=== PATIENT | female | born 1990 | race African-American/Black ===

== ENCOUNTER → 2017-06-25 21:35 | Observation (INO) ==
--- NOTE | 2017-06-25 20:57 | OB/GYN Progress Note ---
Date of Encounter: 06/25/17 Time of Encounter: 20:53 - Assessment and Plan (1) 38 weeks gestation of Current Visit: Yes Status: Acute admitted for labor observation (2) Group B streptococcal infection during Current Visit: Yes Status: Acute GBS prophylaxis in labor Subjective - Subjective Principal diagnosis: Term IUP with contractions Interval history: Patient is a 27 y/o at 38w6d presents to labor and delivery via squad with complaints of contractions that started earlier today and have got more painful. Patient denies LOF or VB. Patient reports +FM. Patient reports she is on Subutex but denies any other complications. We did obtain records from [facility] where patient receives care. Blood type B+, Rubella: Immune, Hep B: nonreactive, GBS: Positive. Antepartum ROS: movement normal, contractions, no loss of fluid, no vaginal bleeding Objective - Exam FHR: auscultation normal, category 1 FHR comments: FHR 145bpm moderate variability +15x15 accels no decels noted. Irregular contractions Auscultation: bilateral: normal Abdomen: Present: normal appearance, soft, gravid Uterus: Present: normal, firm Cervical dilation: 1 Cervix effacement: 80 station: -2
--- NOTE | 2017-06-25 21:21 | OB Labor Progress Note ---
Date of Encounter: 06/25/17 Time of Encounter: 21:20 Labor Progress Note - Subjective Subjective: Patient requesting discharge home at this time. Patient declines SVE and states her pain is better. - Heart Tones Heart Tones: 150 bpm
== END | disposition home or self-care (01) ==
LOC: 1NENULAB
PROVIDERS: ADMIT Advanced Practice Midwife; ATTEND Advanced Practice Midwife